=== PATIENT | female | born 1965 | race Caucasian/White ===

== ENCOUNTER → 2021-02-12 09:41 | Outpatient (CLI) | payer MEDICARE, SELFPAY ==
--- NOTE | ~2021-02-12 | XR_ITS ---
XR knee RT min 4V DATE: 02/12/2021 10:53 INDICATION: Instability TECHNIQUE: 4 views COMPARISON: None FINDINGS: No fracture or dislocation or joint effusion. No periosteal reaction or bone destruction, r adiopaque intra-articular loose body or chondrocalcinosis. Knee joint spaces appear relatively preser colby. IMPRESSION: No significant abnormality Reviewed, dictated and finalized at location A. IMPRESSION: No significant abnormality
--- NOTE | ~2021-02-12 | XR_ITS ---
XR knee LT min 4V DATE: 02/12/2021 10:53 INDICATION: Instability TECHNIQUE: 4 views COMPARISON: None FINDINGS: No fracture or dislocation or joint effusion. No periosteal reaction or bone destruction. N o radiopaque intra-articular loose body or chondrocalcinosis. Mild loss of height at the medial compartment joint space. IMPRESSION: Mild loss of height of medial compartment joint space Reviewed, dictated and finalized at location A.
--- NOTE | ~2021-02-12 | XR_ITS ---
XR hip BI 2V w AP pelvis DATE: 02/12/2021 10:53 INDICATION: Instability TECHNIQUE: AP pelvis. AP and lateral views of each hip COMPARISON: None FINDINGS: There is mild levoscoliosis of the lumbar spine. No pelvic fracture or bone destruction. The pubic symphysis and sacroiliac joints are intact. Hip alber nt spaces are symmetric and well preserved. No fracture, dislocation, avascular necrosis or bone destruction of either hip is detected. IMPRESSION: Mild lumbar levoscoliosis Negative pelvis and hips Reviewed, dictated and finalized at location A.
--- NOTE | ~2021-02-12 | XR_ITS ---
XR foot LT min 3V DATE: 02/12/2021 10:54 INDICATION: Instability TECHNIQUE: 4 views COMPARISON: None FINDINGS: Tibiotalar joint replacement. Osteopenia. There is mild osteoarthritic change at the first metatarsophalangeal joint. No fracture, dislocation, periosteal reaction or bone destruction or erosive change is evident. IMPRESSION: Tibiotalar joint replacement Osteopenia No fracture or dislocation or bone destruction Reviewed, dictated and finalized at location A.
--- NOTE | ~2021-02-12 | XR_ITS ---
XR ankle LT min 3V DATE: 02/12/2021 10:53 INDICATION: Instability TECHNIQUE: 4 views COMPARISON: None FINDINGS: Tibiotalar joint replacement. No fracture or dislocation of the ankle or disruption of the ankle mortise is evident. IMPRESSION: Tibiotalar joint replacement Reviewed, dictated and finalized at location A.
== END ==
PROVIDERS: PCP Family Medicine; Visit Provider Physical Medicine & Rehabilitation Pain Medicine
DX: M25.30 Other instability, unspecified joint (principal); M85.862 Other specified disorders of bone density and structure, left lower leg; Z96.662 Presence of left artificial ankle joint; M41.9 Scoliosis, unspecified
CPT/HCPCS: 73521; 73564; 73610; 73630

== ENCOUNTER 2021-05-20 17:11 | Emergency (ER) | payer MEDICARE, SELFPAY ==
--- NOTE | ~2021-05-20 | XR_ITS ---
EXAMINATION: XR facial bones min 3V DATE: 05/20/2021 18:10 INDICATION: Face injury and pain. TECHNIQUE: 4 views of the facial bones were obtained. COMPARISON: Head CT 11/17/2012 FINDINGS: There is mild leftward deviation of the nasal septum. There is a nasal bone fracture with 7 5 degrees superior angulation. IMPRESSION: 1. Nasal bone fracture. Reviewed, dictated and finalized at location A. IMPRESSION: 1. Nasal bone fracture.
[2021-05-20 17:31] VITALS: BP 130/77; PULSE 96; RESP 18; TEMP 36.5; O2SAT 97
[2021-05-20 19:52] VITALS: O2SAT 98
--- NOTE | 2021-05-20 19:57 | ED.HEATRA ---
HPI - Head Injury General Chief complaint: Head Injury Stated complaint: HEAD INJURY, TREE BRANCH VS FACE Time Seen by Provider: 05/20/21 18:57 Source: patient Mode of arrival: ambulatory Limitations: no limitations History of Present Illness HPI Narrative: This is a 56 year old female that presents to the ER after an injury today with nasal pain. Reports she was trimming tree branches. One came back and hit her in the face. Denies loss of consciousness. Reports her nose started bleeding and she has pain and swelling to the area. Also reports a laceration to the nose. She is not up to date on tetanus. Denies vision changes, vomiting, numbness, or weakness. Related Data Home Medications Medication Instructions Recorded Confirmed oxycodone-acetaminophen 7.5 mg-325 1 tablet PO Q6H PRN 12/17/19 mg tablet progesterone micronized 100 mg 100 mg PO QAM 12/17/19 capsule topiramate 25 mg tablet 25 mg PO DAILY 12/17/19 gabapentin 800 mg tablet 800 mg PO DAILY 03/22/21 levothyroxine 05/20/21 naloxone [Narcan] INTRANASAL 05/20/21 Allergies Allergy/AdvReac Type Severity Reaction Status Date / Time No Known Allergies Allergy Verified 05/20/21 19:48 Review of Systems Review of Systems: CONSTITUTIONAL: Denies fever EYES: Denies visual changes GASTROINTESTINAL: Denies vomiting NEUROLOGIC: Denies headache, numbness, or weakness. All systems reviewed & are unremarkable except as noted in HPI and below PMFSH Past Medical History Medical History (Updated 05/20/21 @ 20:57 by Catarina Wood PA-C) Anxiety Bipolar 1 disorder Chronic ankle pain Recurrent cold sores Family History Family History Mother Patient's mother is in good health Depression Father Patient's father is in good health Depression Family history of attention deficit hyperactivity disorder (ADHD) Sibling Patient's sister is in good health Social History Social History Smoking status: Never smoker Second hand tobacco smoke exposure: No Alcohol intake: current Substance use: never Substance use type: does not use Gender identity (if verbalized by the patient): Female Exam Narrative: GENERAL: Well-appearing, well-nourished, and in no acute distress. HEAD: Normocephalic, atraumatic. EYES: PERRLA and EOMI. ENT: Nares clear, no rhinorrhea or epistaxis. Mucous membranes moist. Oropharynx without tonsillar hypertrophy exudate or other lesions. Bilateral TMs pearly ascencio non-bulging NECK: Supple. No adenopathy or masses. CHEST: Clear to auscultation. No respiratory distress. No wheezes rales or rhonchi HEART: Regular rate and rhythm. No murmur heard. Normal peripheral pulses. EXTREMITIES: Normal range of motion. No edema. SKIN: Warm, dry, no rash. NEURO: No focal deficits. Alert and oriented x3. Cranial nerves II through XII grossly intact PSYCH: Normal mood and affect Course Vital Signs Vital signs: Vital Signs Temperature 97.7 F 05/20/21 17:31 Pulse Rate 96 05/20/21 17:31 Respiratory Rate 18 05/20/21 17:31 Blood Pressure 130/77 05/20/21 17:31 Pulse Oximetry 97 05/20/21 17:31 Temperature 97.7 F 05/20/21 17:31 Pulse Rate 96 05/20/21 17:31 Respiratory Rate 18 05/20/21 17:31 Blood Pressure 130/77 05/20/21 17:31 Pulse Oximetry 98 05/20/21 19:52 Procedures Laceration Laceration 1: Date: 05/20/21 Time: 20:54 Site: face Size (cm): 1.5 Description: linear Depth: simple, single layer Local Anesthetic: lidocaine 1% Amount of anesthesia used (mL): 2 Pre-repair: wound explored and irrigated ====== Skin Level ====== Skin layer closed with: nylon Size (cm): 5-0 Number of sutures: 2 Technique: simple, interrupted ====== Subcutaneous Layer ====== ====== Muscle Layer ====== ====
[2021-05-20] MEDS: TETANUS,DIPHTHERIA,AC PERTUSSIS ADULT (0.5 ML) BOOSTRIX IM (20:20)
[2021-05-20 21:27] VITALS: BP 126/71; PULSE 90; RESP 18; TEMP 36.6; O2SAT 98
== END 2021-05-20 21:29 | disposition home or self-care (01) ==
PROVIDERS: Emergency Provider Emergency Medicine; PCP Family Medicine
DX: S02.2XXA Fracture of nasal bones, initial encounter for closed fracture (principal); F41.9 Anxiety disorder, unspecified; Z23 Encounter for immunization; W20.8XXA Other cause of strike by thrown, projected or falling object, initial encounter
CPT/HCPCS: 12011; 70150; 90471; 90715; 99283

== ENCOUNTER 2021-05-25 02:17 | Day surgery (SDC) | payer MEDICARE, SELFPAY ==
--- NOTE | 2021-05-24 09:28 | PM.IMHP ---
H&P: HPI History of Present Illness Date/Time: 05/24/21 09:28 patient presents for planned surgical procedure history of trauma 6 days ago, no change in symptoms no change in medical history. Chief Complaint: Nasal obstruction, nasal congestion, septal deviation, septal fracture, nasal bone fracture Review of Systems Constitutional: Constitutional: Denies fatigue, Denies fever(s) and Denies lethargy Eyes: Eyes: Denies blurry vision and Denies change in vision ENT: Reports as per HPI Cardiovascular: Cardiovascular: Denies chest pain Respiratory: Respiratory: Denies cough Endocrine: Endocrine: Denies fatigue Hematologic/Lymphatic: Hematologic/Lymphatic: Denies easy bleeding, Denies easy bruising and Denies lymphadenopathy Allergic/Immunologic: Allergic/Immunologic: Denies seasonal rhinorrhea [facility] Past Medical History Medical History (Updated 05/24/21 @ 08:31 by Derek Toney MD) Anxiety Bipolar 1 disorder Chronic ankle pain Recurrent cold sores Family History Family History Mother Patient's mother is in good health Depression Father Patient's father is in good health Depression Family history of attention deficit hyperactivity disorder (ADHD) Sibling Patient's sister is in good health Social History Social History Smoking status: Never smoker Second hand tobacco smoke exposure: No Alcohol intake: current Substance use: never Substance use type: does not use Gender identity (if verbalized by the patient): Female Meds Home Medications and Allergies Home Medications Medication Instructions Recorded Confirmed Type oxycodone-acetaminophen 7.5 mg-325 1 tablet PO Q6H 12/17/19 05/24/21 History mg tablet progesterone micronized 100 mg 100 mg PO QAM 12/17/19 05/24/21 History capsule topiramate 25 mg tablet 25 mg PO DAILY 12/17/19 05/24/21 History quetiapine 100 mg tablet See Rx Instructions .ROUTE 02/28/21 05/24/21 Rx .COMPLEX #180 tablet levothyroxine 05/20/21 05/24/21 History Allergies Allergy/AdvReac Type Severity Reaction Status Date / Time No Known Allergies Allergy Verified 05/24/21 07:56 Exam Const: General: cooperative, healthy appearing, comfortable, well developed and alert HENMT: Head: normal to inspection, normocephalic and atraumatic Ears: hearing grossly normal bilaterally, external ears normal, TM's normal bilaterally and EAC's normal General nose exam: Normal external nose present, Normal nares present and Other nasal findings present ( Nasal fracture deformity septal deviation) Face and sinus: normal facial exam Mouth: Yes Normal oral and palatal mucosa present, Yes lip normal, Yes tongue normal, Yes oropharynx normal and Yes moist mucous membranes Teeth and gingiva: dentition normal and gingiva normal Throat: posterior oropharynx normal, tonsils normal and uvula midline Eyes: General: appearance normal, both eyes and all related structures Periorbital: periorbital findings normal Eyelids: eyelids normal Conjunctivae: conjunctivae normal Sclera: sclerae normal Neck: Neck: normal visual inspection, full ROM and no lymphadenopathy Thyroid: thyroid normal Lymphatic: no lymphadenopathy noted Resp: Effort & Inspection: normal respiratory effort and able to speak in complete sentences Cardio: Jugular venous distension: no JVD Neuro: Cranial nerves: Yes CN's II-XII intact bilaterally Assessment and Plan Assessment and plan (1) History of deviated nasal septum: Code(s): Z87.09 - Personal history of other diseases of the respiratory system Status: Acute Assessment and Plan: plan is for the OR for close reduction of nasal septal fracture as well as close reduction of nasal bone fracture I will need [place] a [place] elevator and splint for the external nose, total operative time 30 minutes. Risks were discussed includ
[2021-05-24 10:31] VITALS: BMI 26.3
[2021-05-25] VITALS (9 sets, daily range): BP systolic 103–138; BP diastolic 59–80; PULSE 65–78; RESP 12–16; TEMP 36.6–37.1; O2SAT 98–100
--- NOTE | 2021-05-25 07:08 | WPDHPUPDATE1 ---
History and Physical Update Update Date/Time: 05/25/21 07:08 History and Physical has been reviewed, including an updated exam of the patient. There are NO changes in the patient's condition. Risks, benefits, and alternatives have been discussed and questions answered. Patient agrees to proceed with procedure.
[2021-05-25] MEDS: LACTATED RINGERS 1,000 ML 30 ML IV CONT ×2 (14:45→17:20)
--- NOTE | 2021-05-25 14:49 | WPDANESEPPF ---
Anes - Initial Pre Proc Eval Procedure: Operation Date: 05/25/21 16:00 Proposed Procedures p Closed Reduction Nasal fracture - Derek Toney MD Date/Time: 05/25/21 14:49 Surgeon: Derek Toney MD Pre Op Diagnosis: nasal fracture Patient Data Age: 56 Gender: F Height: 1.68 m Weight: 74 kg Allergies Allergy/AdvReac Type Severity Reaction Status Date / Time No Known Allergies Allergy Verified 05/24/21 10:24 Home Medications Medication Instructions Recorded Confirmed Type oxycodone-acetaminophen 7.5 mg-325 1 tablet PO Q6H PRN 12/17/19 05/24/21 History mg tablet progesterone micronized 100 mg 100 mg PO QAM 12/17/19 05/24/21 History capsule topiramate 25 mg tablet 25 mg PO QAM 12/17/19 05/24/21 History levothyroxine 88 mcg PO QAM 05/20/21 05/24/21 History ergocalciferol (vitamin D2) 1,250 mcg PO MONTHLY 05/24/21 05/24/21 History estradiol 2 mg PO DAILY 05/24/21 05/24/21 History quetiapine 200 mg PO HS 05/24/21 05/24/21 History valacyclovir 1 mg PO BID PRN 05/24/21 05/24/21 History Patient hx anesthesia problems: none Family hx anesthesia problems: none PMFSH Past Medical History Medical History (Updated 05/24/21 @ 08:31 by Derek Toney MD) Anxiety Bipolar 1 disorder Chronic ankle pain Recurrent cold sores Family History Family History Mother Patient's mother is in good health Depression Father Patient's father is in good health Depression Family history of attention deficit hyperactivity disorder (ADHD) Sibling Patient's sister is in good health Social History Social History Smoking packs per day: 0.5 Smoking cigarettes per day: 10.0 Years smoked: 28 Smoking pack-years: 14.00 Smoking status: Former smoker Tobacco type: cigarettes Second hand tobacco smoke exposure: No Smoking end date: 01/28/20 Alcohol intake: current Drinks per week: 2 Substance use: never Substance use type: does not use Living arrangements: alone Gender identity (if verbalized by the patient): Female Spiritual care concerns: No Anes - Eval Final PreProcedure Day of Procedure 05/25/21 14:49 Patient weight: overweight Heart: regular rate and rhythm Lungs: clear to auscultation Airway: Mallampati scale class II Neurological: alert and oriented Last oral intake: >/= 8 hours ASA classification: II Emergent: no Anesthetic plan: proceed Anesthesia type and monitoring: general LMA and standard monitoring Informed Consent: The patient's anesthetic plan and its attendant risks and benefits were discussed with the patient/family/POA. Questions were solicited and answers provided to the satisfaction of the patient/family/POA.
[2021-05-25] MEDS: fentaNYL CITRATE INJ (*CRX) 100 MCG/2 ML VIAL 50 MCG IV PUSH (14:50)
[2021-05-25] MEDS: fentaNYL CITRATE INJ (*CRX) 100 MCG/2 ML VIAL 25 MCG IV PUSH ×4 (17:18→17:30)
--- NOTE | 2021-05-25 17:29 | W.PM.PROC2 ---
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 The patient was then brought to the operating room and a time-out was performed. General anesthesia was induced and endotracheal tube was secured the patient's airway. Patient was then prepped and draped for the aforementioned procedure. Time-out was performed again. [place] elevator utilized to fracture the septum towards the midline from the left to the right. Dorsal the excuse me the [place] elevator was then inserted reducing the nasal bones from the left to the right in a more midline position. The dorsal hump was well reduced. Bleeding was controlled with the intermittent application of Afrin-soaked pledgets. Bilateral nasal passages suctioned clean. Brown tape placed over the nose splint placed brown tape placed over the splint. Dressing placed. I performed all dictated portions of the procedure. Blood loss 5 cc. Care the patient was turned over to Anesthesiology. There were no immediate complications. Estimated Blood Loss 5 Drains No Packing No Pathology none sent Complications No immediate complications Condition stable Disposition PACU
== END 2021-05-25 18:19 | disposition home or self-care (01) ==
PROVIDERS: PCP Family Medicine; Visit Provider Otolaryngology
PROC: 0NSBXZZ Reposition Nasal Bone, External Approach (ICD-10-PCS; CPT 21315; principal; 2021-05-25 16:00)
DX: S02.2XXA Fracture of nasal bones, initial encounter for closed fracture (principal); E03.9 Hypothyroidism, unspecified; F31.9 Bipolar disorder, unspecified; F41.9 Anxiety disorder, unspecified; Z87.891 Personal history of nicotine dependence; Z79.899 Other long term (current) drug therapy; X58.XXXA Exposure to other specified factors, initial encounter; Y93.9 Activity, unspecified; Y92.9 Unspecified place or not applicable; Y99.9 Unspecified external cause status
CPT/HCPCS: 21320; A9270; J0330; J0690; J1100; J2250; J2405; J2704; J3010; J7120

== ENCOUNTER 2024-01-23 13:33 | Outpatient (CLI) | payer MEDICARE, SELFPAY ==
--- NOTE | ~2024-01-23 | MR_ITS ---
EXAMINATION: MR cervical spine wo con DATE: 01/23/2024 14:33 INDICATION: Left neck pain. Radiculopathy. TECHNIQUE: Magnetic resonance imaging (MRI) of the cervical spine was performed without intravenous c ontrast. COMPARISON: None FINDINGS: There is mild kyphosis of cervical spine. The vertebral body heights are normal. There is m ildly decreased disc height at C4-C5 and severely decreased disc height at C5-C6. The spinal cord sig nal intensity is normal. The following disc levels are specifically discussed: C2-C3: The disc does not extend beyond the endplate margin. There is no uncovertebral joint osteoarth ritis. There is severe right and moderate left facet joint osteoarthritis. There is mild right neural foraminal stenosis. There is no central canal stenosis. C3-C4: The disc does not extend beyond the endplate margin. There is no uncovertebral joint osteoarth ritis. There is mild right and severe left facet joint osteoarthritis. There is mild left neural fora vamshi stenosis. There is no central canal stenosis. C4-C5: There is a central extrusion. There is no uncovertebral joint osteoarthritis. There is mild ri ght facet joint osteoarthritis. There is no neural foraminal stenosis. There is mild central canal st enosis. C5-C6: The disc is bulging. There is severe bilateral uncovertebral joint osteoarthritis. There is no facet joint osteoarthritis. There is mild bilateral neural foraminal stenosis. There is mild central canal stenosis. C6-C7: There is a central protrusion. There is no uncovertebral joint osteoarthritis. There is severe right and moderate left facet joint osteoarthritis. There is mild right neural foraminal stenosis. T here is mild central canal stenosis. C7-T1: The disc does not extend beyond the endplate margin. There is no uncovertebral joint osteoarth ritis. There is moderate bilateral facet joint osteoarthritis. There is mild bilateral neural foramin al stenosis. There is no central canal stenosis. IMPRESSION: 1. Severe spondylosis at C5-C6 and mild spondylosis at other levels. Reviewed, dictated and finalized at location A.
--- NOTE | ~2024-01-23 | MR_ITS ---
EXAMINATION: MR shoulder LT wo con DATE: 01/23/2024 14:25 INDICATION: Radiculopathy with left-sided neck pain radiating to the left shoulder. There is also ray ited range of motion at the left shoulder. TECHNIQUE: Magnetic resonance imaging (MRI) of the left shoulder was performed without intravenous co ntrast. Sequences included axial PD-weighted FS FSE, coronal oblique PD-weighted FS FSE, coronal obli que T2-weighted FS FSE, sagittal PD-weighted FS FSE, and sagittal T1-weighted SE. COMPARISON: None. FINDINGS: Coracoacromial arch: The acromion undersurface is flat in morphology (type I). Moderate-sized subacromial spur along the p eripheral margins of the inferior acromion. The coracoacromial ligament is normal. Mild acromioclavic ular osteoarthritis. Rotator cuff: Mild supraspinatus tendinopathy without tear. The infraspinatus, teres minor and subscapularis tendon s are normal. Normal rotator cuff muscle bulk and signal. Biceps tendon, glenoid labrum and glenohumeral cartilage: Long head of the biceps tendon is normal. Glenoid labrum is normal. There is partial thickness chondr al ulceration with underlying mild subarticular edema-like signal change at the inferior glenoid. Add itional mild partial-thickness cartilage loss with subtle chondral surface regularity along the infer omedial aspect of the humeral head. Fluid: Physiologic amount of fluid in the glenohumeral joint and biceps tendon sheath. No loose osteochondr al bodies. Small amount of fluid in the subacromial/subdeltoid bursa consistent with mild bursitis. Bones: Old healed fracture deformity at the surgical neck of the proximal humerus which appears to have heal ed with some mild varus and posterior angulation. No acute fractures identified. No pathologic marrow replacing process. IMPRESSION: 1. Mild left glenohumeral and acromioclavicular osteoarthritis. 2. Chronic fracture at the surgical neck of the proximal left humerus which has healed with mild varu s and posterior angulation. Reviewed, dictated and finalized at location A. IMPRESSION: 1. Mild left glenohumeral and acromioclavicular osteoarthritis. 2. Chronic fracture at the surgical neck of the proximal left humerus which has healed with mild varus and posterior angulation.
== END 2024-01-23 13:34 ==
PROVIDERS: PCP Physical Medicine & Rehabilitation Pain Medicine; Visit Provider Physical Medicine & Rehabilitation Pain Medicine
DX: M19.012 Primary osteoarthritis, left shoulder (principal); M47.22 Other spondylosis with radiculopathy, cervical region
CPT/HCPCS: 72141; 73221

== ENCOUNTER 2024-07-19 15:30 | Outpatient (CLI) | payer MEDICARE, SELFPAY ==
--- NOTE | ~2024-07-19 | CT_ITS ---
EXAMINATION: CT abdomen pelvis wo con DATE: 07/19/2024 16:22 INDICATION: Low abdominal pain, unspecified. TECHNIQUE: Computed tomography (CT) of the abdomen and pelvis was performed without intravenous contr ast. Automated exposure control and iterative reconstruction technique were employed. The dose-length product was 266.51 mGy-cm. COMPARISON: None. FINDINGS: The visualized portions of the lung bases demonstrate minimal atelectasis. Calcified right lung nodules are consistent with old granulomatous disease. No pleural effusion. The heart size is no rmal. No pericardial effusion. The liver, gallbladder, and pancreas are normal. Calcifications in the spleen are consistent with old granulomatous disease. The adrenal glands and kidneys are normal. The re is no urolithiasis. There is a 14.4 x 10.1 x 1.7 cm cystic mass superior to the bladder and uterus . There are no pathologically enlarged lymph nodes. There is no free intraperitoneal fluid. There is severe lower lumbar spondylosis. IMPRESSION: 1. 14.4 cm cystic mass in the pelvis, most likely ovarian in origin. This finding is suspicious for n eoplasm. Surgical evaluation is recommended. I called this result to Dr. Arreola. Reviewed, dictated and finalized at location A. IMPRESSION: 1. 14.4 cm cystic mass in the pelvis, most likely ovarian in origin. This findi ng is suspicious for neoplasm. Surgical evaluation is recommended. I called thi s result to Dr. Arreola.
== END 2024-07-19 15:31 | disposition home or self-care (01) ==
LOC: ANHIMG 15:32
PROVIDERS: Visit Provider Surgery
DX: R10.30 Lower abdominal pain, unspecified (principal)
CPT/HCPCS: 74176

== ENCOUNTER 2025-09-01 10:24 | Outpatient (CLI) | payer MEDICARE, SELFPAY ==
--- NOTE | ~2025-09-01 | MM_ITS ---
EXAMINATION: MM screening mammography implant BI w gutierrez HISTORY: Screening. TECHNIQUE: Craniocaudal and mediolateral oblique 3-D tomosynthesis images were obtained and synthetic 2-D images were generated. CAD analysis was submitted and interpreted. COMPARISON: 2012 BREAST PARENCHYMAL COMPOSITION: Not Dense: There are scattered areas of fibroglandular FINDINGS: There is/are retropectoral silicone implants. The presence of implants decreases the sensitivity of mammography. No suspicious masses are seen. There are no suspicious calcifications. No unexplained architectural distortion is seen. There are no skin or nipple abnormalities identified. There is no adenopathy seen on the images submitted. IMPRESSION: No mammographic evidence to suggest malignancy is seen. The patient may return to screening mammography as per ACR guidelines. BI-RADS 1 - Negative. Reviewed, dictated and finalized at location C. NG SUPERVISOR
--- OUTSIDE RECORDS SUMMARY | 2025-09-01 11:35 | XMS_ITS | Clinical Summary ---
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 Cleaner Name Role Phone Tracie Morales MD Primary Care Provider [phone] Allergies No known active allergies Medications baclofen (LIORESAL) 20 mg tabletIndications: muscle spasms Take 1 tablet (20 mg total) by mouth every 3 (three) hours as needed for muscle spasms (as needed for muscle spasms) Active dextroamphetamine- amphetamine (ADDERALL) 30 mg tablet Take 1 tablet (30 mg total) by mouth daily as needed Active gabapentin (NEURONTIN) 400 mg capsule Take 1 capsule (400 mg total) by mouth 3 (three) times a day as needed (as needed for pain) 4 Active levothyroxine (SYNTHROID) 100 mcg tablet Take 1 tablet (100 mcg total) by mouth 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 before breakfast 4 Active ferrous sulfate (IRON ORAL) Take 65 mg by mouth Active Lactobacillus acidophilus (PROBIOTIC ORAL) Take 1 capsule by mouth every morning Active ALOE VERA ORAL Take 2 capsules by mouth every morning Active ascorbic acid (VITAMIN C ORAL)Indications:s upplement Take 1,000 mg by mouth every morning Active bisacodyl EC (DULCOLAX EC) 5 mg EC tablet Take 2 tablets (10 mg total) by mouth nightly Active diphenhydramine HCl (UNISOM SLEEPGELS ORAL) Take 1-3 capsules by mouth nightly Active polyethylene glycol (MIRALAX) 17 gram/dose bulk powder Take 17 g by mouth every morning Active ondansetron ODT (ZOFRAN-ODT) 4 mg disintegrating tablet Take 1 tablet (4 mg total) by mouth every 8 (eight) hours as needed for nausea or vomiting 10 tablet 4 Active senna (SENOKOT) 8.6 mg tablet Take 1 tablet by mouth daily 30 tablet 11 4 Active oxyCODONE (ROXICODONE) 5 mg immediate release tabletIndications: Pain Take 1 tablet (5 mg total) by mouth every 4 (four) hours as needed for pain 10 tablet 4 Active acetaminophen (TYLENOL) 500 mg tablet Take 2 tablets (1,000 mg total) by mouth every 6 (six) hours as needed for pain 30 tablet 4 Active ibuprofen (ADVIL,MOTRIN) 600 mg tablet Take 1 tablet (600 mg total) by mouth every 6 (six) hours as needed for pain 30 tablet 4 Active ramelteon (ROZEREM) 8 mg tablet Take 1 tablet (8 mg total) by mouth nightly 5 Active Active Problems Problem Noted Date Diagnosed Date Cyst of ovary 08/13/2024 Displaced fracture of left humerus 10/30/2018 Arthralgia of ankle 07/06/2012 Immunizations Immunization Administration Dates Next Due Influenza, Quadrivalent, Felicia l Culture-based MDCK, Antibiotic Free, Intramuscular 08/19/2018 Influenza, Quadrivalent, Spl it, Preservative Free, Intramuscular 07/29/2020 Influenza, Trivalent, IM (MDV) 09/17/2014 Tdap 05/20/2021,01/29/2016 Surgical History Surgery Date Site/Laterality Comments ANKLE FRACTURE SURGERY TOTAL ANKLE REPLACEMENT TUBAL LIGATION 09/29/2007 - 09/28/2008 ANKLE SURGERY 09/29/2003 - 09/28/2004 TOTAL ANKLE REPLACEMENT 09/29/2013 - 09/28/2014 ANKLE FRACTURE SURGERY 2014- 2016 Medical History Medical History Date Comments Neuromuscular disorder Hyperlipidemia Psoriasis Cervical spine disease Degenerative joint disease (DJD) of lumbar spine Hypothyroidism PONV (postoperative nausea and vomiting) Family History Medical History Relation Name Comments Psoriasis Daughter Colon cancer Father Peripheral vascular disease Father Psoriasis Father No Known Problems Mother Interstitial cystitis Sister Psoriasis Sister Anesthesia problems Neg Hx Relation Name Status Comments Daughter Father Mother Alive Sister Alive Social History Tobacco Use Types Packs/Day Years Used Date Smoking Tobacco: Former Cigarettes 0.5 36 1 986 - 2021 Smokeless Tobacco: Never Tobacco Cessation:Counseling Given: Not Answered Comments:Social smoker Alcohol Use Standard Drinks/Week Comments Yes 0 (1 standard drink = 0.6 oz pur e alcohol) social AUDIT-C Answer Date Recorded Q1: How often do you have a drink containing alc ohol? Monthly or less 09/01/2024 Q2: How many drinks containi ng alcohol do you have on a typical day when you are drinking? 1 or 2 09/01/2024 Q3: How often do you have si x or more drinks on one occasion? Never 09/01/2024 Personal Safety Answer Date Recorded Have you ever been in or are you currently in a harmful physical or emotional relationship or is someone making you feel afraid or unsafe? Denies 09/01/2024 Comments No Sex and Gender Information Value Date Recorded Sex Assigned at Not on file Legal Sex Female 5:53 AM LEADITE MAN Gender Identity Female 08/12/2024 8:41 AM LEADITE MAN Sexual Orientation Asexual 08/12/2024 8: 41 AM LEADITE MAN Obstetrics History Para Term AB IAB SAB Ectopic Multiple Livin g Live Births 2 2 Date Outcome GA Total Labor Labor/2nd/3rd Weight Sex Type Anes PTL Dariana A1 A5 Name Clin Last Filed Vital Signs Vital Sign Reading Time Taken Comments Blood Pressure 118/75 11/26/2024 11:38 AM LEADITE MAN Pulse 90 11/26/2024 11:38 AM LEADITE MAN Temperature 36.6 C (97.8 F) 11/26/2024 11:38 AM LEADITE MAN Respiratory Rate 16 11/26/2024 11:38 AM LEADITE MAN Oxygen Saturation 98% 11/26/2024 11:38 AM LEADITE MAN Inhaled Oxygen Concentration - - Weight 66.4 kg (146 lb 6.4 oz) 11/26/2024 11:38 AM LEADITE MAN Height 167 cm (5' 5.75) 11/26/2024 11:38 AM LEADITE MAN Body Mass Index 23.81 11/26/2024 11:38 AM LEADITE MAN Plan of Treatment Health Maintenance Due Date Last Done Comments Breast Cancer Screening-Mammogram 1967 Cervical Cancer Screening 1967 Colon Cancer Screening-Colonoscopy 1967 Depression Screening 1967 Hepatitis C Screening 1967 Meningococcal B Vaccine (1 o f 4 - Increased Risk) 1977 Hepatitis B Screening 1985 Regular Well Visit/Exam 18-64 1985 Pneumococcal vaccine <65 (1 of 2 - PCV) 1986 Zoster Vaccine (1 of 2) 2017 Covid-19 Vaccine (3 - season) 2025, 12/25/2020 Influenza Vaccine (#1) 2025 , 08/19/2018, 09/17/2014 DTaP/Tdap/Td Vaccine (3 - Td or Tdap) 05/20/2031, 01/29/2016 Insurance MEDICARE [facility] MEDICARE [facility] MEDICARE [facility] Advance Directives For more information, please contact: [phone] Documents on File Type Date Recorded Patient [place] Expl anation ADVANCE DIRECTIVE 09/01/2024 8:25 AM Power of Child Adolescent Psychiatrist-Medical Care Teams Truck Car And Bus Cleaner Relationship Specialty Start Date End Date Tracie Morales MD PCP - General Family Medicine 10/20/18
--- OUTSIDE RECORDS SUMMARY | 2025-09-01 11:35 | XMS_ITS | Clinical Summary ---
Author Organization [facility] [employer] Address [address] [place] [address] Care Team Providers Care Fast Food Shift Lead Name Role Phone Tracie Morales MD Primary Care Provider [phone] Tracie Morales MD Unavailable Source Comments [facility] [employer],non-owned Affiliates and Associated Physician Practices is amultiple site organization consisting of ambulatory clinics and hospital sitesin [place], [place], [place] and [place]. This disclosure is being madepursuant to the Care Everywhere program and may not contain all information available regarding this patient. Last updated 18.[facility] [employer] Allergies No known active allergies Medications * Be aware that medications may not be up to date on this document. Alwaysverify current medications with the patient. gabapentin (NEURONTIN) 100 MG capsule Take 1 (one) capsule by mouth at bedtime Active progesterone 100 mg 100 mg tablet Take 1 (one) tablet by mouth at bedtime Active Other T-3 100 MG DAILY Active diclofenac sodium EC (VOLTAREN) 50 MG tablet Take 50 mg by mouth 2 times daily. Active piroxicam (FELDENE) 20 MG capsule Take 1 (one) capsule by mouth once daily Active baclofen (LIORESAL) 10 MG tablet Take 1 (one) tablet by mouth at bedtime May cause drowsiness. Active spironolactone (ALDACTONE) 25 MG tablet Take 25 mg by mouth 2 times daily. Active oxyCODONE-aceta minophen (PERCOCET) 5-325 MG tablet Take 1 Tab by mouth every 4 hours as needed for Pain. 40 Tab 0 09/17/2014 Active amphetamine-dex troamphetamine (Adderall) 30 MG tablet Take 1 (one) tablet by mouth every morning Active Active Problems No known active problems Immunizations Immunization Administration Dates Next Due INFLUENZA VACCINE, TRIV. (AF LURIA, FLUZONE TRIVALENT; 6MO+) (IIV3) 09/17/2014 Family History Medical History Relation Name Comments Cancer - Colon Father Cancer - Breast Neg Hx Cancer - Ovarian Neg Hx Cancer - Pancreatic Neg Hx Cancer - Uterine Neg Hx Relation Name Status Comments Father Social History Tobacco Use Types Packs/Day Years Used Date Smoking Tobacco: Former Cigarettes Smokeless Tobacco: Never Alcohol Use Standard Drinks/Week Comments No 0 (1 standard drink = 0.6 oz pur e alcohol) Comments No Sex and Gender Information Value Date Recorded Sex Assigned at Not on file Legal Sex Female 4:45 PM CDT Gender Identity Not on file Sexual Orientation Not on file Last Filed Vital Signs Vital Sign Reading Time Taken Comments Blood Pressure 110/74 08/05/2024 12:57 PM HUMAN RESOURCES BENEFITS COORDINATOR Pulse 88 09/17/2014 4:44 PM HUMAN RESOURCES BENEFITS COORDINATOR Temperature 37.1 C (98.8 F) 09/17/2014 4:44 PM HUMAN RESOURCES BENEFITS COORDINATOR Respiratory Rate 18 09/17/2014 4:44 PM HUMAN RESOURCES BENEFITS COORDINATOR Oxygen Saturation 97% 09/17/2014 4:44 PM HUMAN RESOURCES BENEFITS COORDINATOR Inhaled Oxygen Concentration - - Weight 62.1 kg (136 lb 12.8 oz) 024 12:57 PM HUMAN RESOURCES BENEFITS COORDINATOR Height 167.6 cm (5' 6) 08/05/2024 12:5 7 PM HUMAN RESOURCES BENEFITS COORDINATOR Body Mass Index 22.08 08/05/2024 12:57 PM HUMAN RESOURCES BENEFITS COORDINATOR Plan of Treatment Health Maintenance Due Date Last Done Comments COLOGUARD (AGES 45-75) - COLON CA SCREENING 1967 COLON MONITORING 1967 COLONOSCOPY - COLON CA SCREENING 1967 CT COLONOGRAPHY - COLON CA SCREENING 1967 Colorectal Cancer Screening 1967 FIT - COLON CA SCREENING 1967 FLEX SIG - COLON CA SCREENING 1967 LIPID TESTING 1967 MAMMOGRAM 1967 MEDICARE AWV 12 MONTHS 1967 HIV SCREENING 1982 HEPATITIS C SCREENING 01/31/1985 DTAP/TDAP/TD VACCINES (1 - Tdap) 1986 HEPATITIS B VACCINE (1 of 3 - 19+ 3-dose series) 1986 PAP SMEAR 02/06/1988 PNEUMOCOCCAL VACCINE 50+ (1 of 1 - PCV) 2017 ZOSTER VACCINE (1 of 2) 2017 DEPRESSION SCREENING 09/29/2024 COVID-19 VACCINE (4 - season) 2025 09/13/2021, 01/16/2021, 12/25/2020 INFLUENZA VACCINE (#1) 2025 , 07/29/2020, 08/19/2018, Additional history exists HIB VACCINE Aged Out No longer eligi ble based on patient's age to complete this topic HPV VACCINE Aged Out No longer eligi ble based on patient's age to complete this topic MENINGOCOCCAL (Group B) VACCINE SHARED DECISION-MAKING Aged Out No longer eligible based on patient's age to complete this topic MENINGOCOCCAL GROUPS A/C/Y/W VACCINE Aged Out No longer eligible based on patient's age to complete this topic Medical Devices Implanted Type Area Pack Changer Device Identifier Shelf Expiration Date Model / Serial / Lot Tibial Insert, Left, Size 00, Thick 9mm Implanted:Qty: 1 on 09/15/2014 by Gurpreet Barrett DPM at [facility] Left: [employer] 02/27/2017 [id number] / [id number] / Tibial Component, Size 0 Implanted:Qty: 1 on 09/15/2014 by Gurpreet Barrett DPM at [facility] Left: [employer] 06/29/2019 [id number] / [id number] / Talar Component, Left, Size 0 Implanted:Qty: 1 on 09/15/2014 by Gurpreet Barrett DPM at [facility] Left: [employer] 05/30/2019 [id number] / [id number] / Insurance [facility] MEDICARE Advance Directives * Full Code (Latest Code Status on File) Date Activated Date Inactivated Comments 09/15/2014 5:59 PM 09/17/2014 6:27 PM Care Teams Fast Food Shift Lead Relationship Specialty Start Date End Date Tracie Morales MD [address] [place] [address] PCP - General 06/15/20 Tracie Morales MD [address] [place] [address] Family Medicine 06/15/20
== END 2025-09-01 10:25 | disposition home or self-care (01) ==
LOC: ANHFOHIMG 10:27
PROVIDERS: PCP Family Medicine; Visit Provider Obstetrics & Gynecology
DX: Z12.31 Encounter for screening mammogram for malignant neoplasm of breast (principal)
CPT/HCPCS: 77063; 77067